=== PATIENT | female | born 1970 | race African-American/Black ===

== ENCOUNTER 2017-05-18 13:02 | Outpatient (CLI) | payer OTHER | END 2017-05-18 13:03 | disposition home or self-care (01) | LOC: BICRAD 13:02 | PROVIDERS: ATTEND Family Medicine | DX: M25.572 Pain in left ankle and joints of left foot (principal); M25.472 Effusion, left ankle; M19.072 Primary osteoarthritis, left ankle and foot; M77.9 Enthesopathy, unspecified ==

== ENCOUNTER 2017-06-06 17:35 | Emergency (ER) | payer OTHER ==
--- NOTE | 2017-06-06 18:43 | RAD ---
CHEST ONE VIEW: 06/06/17 HISTORY: 47-year-old female with chest pain and cough. History of flu. Heart size is within normal limits. The lungs are clear. No pneumonia, edema, pleural effusion or oth er acute process. POS: [facility]
== END 2017-06-06 18:48 | disposition home or self-care (01) ==
LOC: ERS 17:35
DX: J11.1 Influenza due to unidentified influenza virus with other respiratory manifestations (principal); I10 Essential (primary) hypertension; F41.9 Anxiety disorder, unspecified
CPT/HCPCS: 71010

== ENCOUNTER 2017-10-14 13:14 | Outpatient (CLI) | payer OTHER | END 2017-10-14 13:15 | disposition home or self-care (01) | LOC: BICRAD 13:14 | PROVIDERS: ATTEND Internal Medicine | DX: Z02.71 Encounter for disability determination (principal); M47.896 Other spondylosis, lumbar region | CPT/HCPCS: 72100 ==

== ENCOUNTER 2020-04-03 08:39 | Outpatient (CLI) | payer OTHER | END 2020-04-03 08:40 | disposition home or self-care (01) | LOC: DTY/OP 08:39 | PROVIDERS: ATTEND Surgery | DX: E66.01 Morbid (severe) obesity due to excess calories (principal) | CPT/HCPCS: 97802 ==

== ENCOUNTER 2020-10-05 08:15 | Outpatient (CLI) | payer OTHER | END 2020-10-05 08:16 | disposition home or self-care (01) | LOC: BICRAD 08:15 | PROVIDERS: ATTEND Family Medicine | DX: S80.01XA Contusion of right knee, initial encounter (principal); S80.02XA Contusion of left knee, initial encounter; S90.31XA Contusion of right foot, initial encounter; S90.32XA Contusion of left foot, initial encounter; G56.02 Carpal tunnel syndrome, left upper limb; M25.522 Pain in left elbow; M25.521 Pain in right elbow; M25.512 Pain in left shoulder; M25.511 Pain in right shoulder; M54.2 Cervicalgia; M17.0 Bilateral primary osteoarthritis of knee; M19.072 Primary osteoarthritis, left ankle and foot; M19.071 Primary osteoarthritis, right ankle and foot; M77.31 Calcaneal spur, right foot; M19.021 Primary osteoarthritis, right elbow; M19.022 Primary osteoarthritis, left elbow; M19.011 Primary osteoarthritis, right shoulder; M19.012 Primary osteoarthritis, left shoulder; M47.812 Spondylosis without myelopathy or radiculopathy, cervical region; M50.31 Other cervical disc degeneration, high cervical region; Z98.890 Other specified postprocedural states; Z87.81 Personal history of (healed) traumatic fracture | CPT/HCPCS: 72050 ==

== ENCOUNTER 2021-06-27 12:56 | Outpatient (CLI) | payer OTHER | END 2021-06-27 12:57 | disposition home or self-care (01) | LOC: ULT 12:56 | PROVIDERS: ATTEND Nurse Practitioner | DX: N92.1 Excessive and frequent menstruation with irregular cycle (principal) | CPT/HCPCS: 76856 ==

== ENCOUNTER 2021-08-12 11:12 | Outpatient (CLI) | payer OTHER | END 2021-08-12 11:13 | disposition home or self-care (01) | LOC: DTY/OP 11:12 | PROVIDERS: ATTEND Surgery | DX: E66.01 Morbid (severe) obesity due to excess calories (principal) | CPT/HCPCS: 97802 ==

== ENCOUNTER 2021-12-24 14:55 | Outpatient (CLI) | payer OTHER | END 2021-12-24 14:56 | disposition home or self-care (01) | LOC: LABBT 14:55 | PROVIDERS: ATTEND Internal Medicine | DX: Z20.822 Contact with and (suspected) exposure to COVID-19 (principal) | CPT/HCPCS: 87811 ==

== ENCOUNTER 2021-12-26 06:02 | Day surgery (SDC) | payer OTHER ==
[2021-12-25 09:17] VITALS: BMI 46.3
[2021-12-26] MEDS ORDERED: PROPOFOL 200 MG/20 ML VIAL ONE (08:04)
[2021-12-26] MEDS ORDERED: Lidocaine 1% PF 5 ML VIAL ONE (08:04)
== END 2021-12-26 09:20 | disposition home or self-care (01) ==
LOC: SDC 06:02
PROVIDERS: ATTEND Internal Medicine
PROC: 0DBL8ZZ Excision of Transverse Colon, Via Natural or Artificial Opening Endoscopic (ICD-10-PCS; principal; 2021-12-26)
PROC: 0DB58ZX Excision of Esophagus, Via Natural or Artificial Opening Endoscopic, Diagnostic (ICD-10-PCS; principal; 2021-12-26)
DX: Z12.11 Encounter for screening for malignant neoplasm of colon (principal); K63.5 Polyp of colon; K62.89 Other specified diseases of anus and rectum; K29.50 Unspecified chronic gastritis without bleeding; I10 Essential (primary) hypertension; E78.00 Pure hypercholesterolemia, unspecified; M19.90 Unspecified osteoarthritis, unspecified site; Z80.0 Family history of malignant neoplasm of digestive organs; Z83.71 Family history of colonic polyps; Z79.899 Other long term (current) drug therapy; Z86.19 Personal history of other infectious and parasitic diseases
CPT/HCPCS: 88305; 88342; J2704

== ENCOUNTER 2022-01-09 15:03 | Outpatient (CLI) | payer OTHER | END 2022-01-09 15:04 | disposition home or self-care (01) | LOC: BICRAD 15:03 | PROVIDERS: ATTEND Surgery | DX: Z01.818 Encounter for other preprocedural examination (principal) | CPT/HCPCS: 71046 ==

== ENCOUNTER 2022-03-07 09:08 | Outpatient (CLI) | payer OTHER | END 2022-03-07 09:09 | disposition home or self-care (01) | LOC: BICRAD 09:08 | PROVIDERS: ATTEND Family Medicine | DX: M25.512 Pain in left shoulder (principal) ==

== ENCOUNTER 2022-03-20 08:45 | Inpatient (IN) | payer OTHER ==
[2022-04-07 14:06] VITALS: BMI 45.8
[2022-04-09] MEDS ORDERED: Bupivacaine/Epinephrine 0.25% 30 ML VIAL ONE (13:01)
[2022-04-09] MEDS ORDERED: Heparin 5,000 UNITS/ML VIAL ONE (13:05)
[2022-04-09 13:30] LABS: SARS-CoV-2 NAA Rapid Test Not Detected (NotDetected)
[2022-04-09] MEDS ORDERED: fentaNYL Citrate/PF 100 MCG/2 ML SYRINGE ONE (13:37)
[2022-04-09] MEDS ORDERED: Sodium Chloride 0.9% 100 ML ONE (13:49)
[2022-04-09] MEDS ORDERED: CEFAZOLIN 2 GM VIAL ONE (13:49)
[2022-04-09] MEDS ORDERED: NEOSTIGMINE 3 MG/3 ML SYR 3 MG/3 ML SYRINGE ONE (14:07)
[2022-04-09] MEDS ORDERED: Dexamethasone 20 MG/5 ML VIAL ONE (14:07)
[2022-04-09] MEDS ORDERED: Rocuronium Bromide 10 MG/ML (10ML VIAL) ONE (14:07)
[2022-04-09] MEDS ORDERED: ePHEDrine 50 MG/ML VIAL ONE (14:07)
[2022-04-09] MEDS ORDERED: PROPOFOL 200 MG/20 ML VIAL ONE (14:07)
[2022-04-09] MEDS ORDERED: Glycopyrrolate 0.2 MG/ML 5 ML SYRINGE ONE (14:07)
[2022-04-09] MEDS ORDERED: Ondansetron PF 4 MG/2 ML Vial ONE (14:07)
[2022-04-09] MEDS ORDERED: SUGAMMADEX SODIUM 200 MG/2 ML VIAL ONE (14:58)
[2022-04-09] MEDS ORDERED: Promethazine HCl 25 MG/ML VIAL IVPB PRN ×2 (15:12→15:56)
[2022-04-09] MEDS ORDERED: Ondansetron HCl/PF 4 MG/2 ML Vial IVP PRN ×2 (15:12→15:56)
[2022-04-09] MEDS ORDERED: Promethazine HCl 25 MG/ML VIAL IM PRN ×4 (15:12→15:56)
[2022-04-09] MEDS ORDERED: FENTANYL 50 MCG/ML VIAL 50 MCG/ML VIAL ONE ×3 (15:15→16:03)
[2022-04-09] MEDS ORDERED: Ondansetron PF 4 MG/2 ML Vial IVP PRN (15:18)
[2022-04-09] MEDS ORDERED: Dextrose 5% in Water 1,000 ML IV PRN (15:18)
[2022-04-09] MEDS: D5 1/2 NS w/20 mEq KCL 1,000 ML IV SCH (15:18)
[2022-04-09] MEDS ORDERED: Dextrose 50% Abboject 50 ML SYRINGE SLOW IVP PRN (15:18)
[2022-04-09] MEDS ORDERED: diphenhydrAMINE 50 MG/ML VIAL IVP PRN ×2 (15:18→15:56)
[2022-04-09] MEDS ORDERED: hydrALAZINE 20 MG/ML VIAL SLOW IVP PRN ×2 (15:18→15:57)
[2022-04-09] MEDS ORDERED: FENTANYL 500 MCG/10 ML VIAL 2,000 MCG in Sodium Chloride 0.9% 60 ML IV PRN (15:56)
[2022-04-09] MEDS ORDERED: Naloxone HCl 0.4 mg/ml Vial IV PRN (15:56)
[2022-04-09] MEDS ORDERED: diphenhydrAMINE 50 MG/ML VIAL IM PRN (15:56)
[2022-04-09] MEDS ORDERED: Zolpidem Tartrate 5 MG TAB PO PRN (15:56)
[2022-04-09] MEDS ORDERED: diphenhydrAMINE 25 MG CAP PO PRN (15:56)
[2022-04-09] MEDS ORDERED: Communication Order-Pharmacy FS SCH (16:00)
[2022-04-09] MEDS ORDERED: hydrALAZINE 20 MG/ML VIAL ONE (16:03)
[2022-04-09] MEDS ORDERED: Promethazine HCl 25 MG/ML VIAL ONE (18:01)
[2022-04-09] MEDS: Ondansetron PF 4 MG/2 ML Vial IVP PRN (19:31)
[2022-04-10] MEDS: D5 1/2 NS w/20 mEq KCL 1,000 ML IV SCH ×4 (00:22→21:19)
[2022-04-10] MEDS: Ondansetron PF 4 MG/2 ML Vial IVP PRN (05:40)
[2022-04-10 06:11] LABS: #Lymphocytes 1.2 thou/uL (1.20-3.40); #Monocytes 0.3 thou/uL (0.11-0.59); #Neutrophils 9.3 thou/uL (1.40-6.50); %Basophils 0.1 % (0.0-1.0); %Eosinophils 0.2 % (0.0-10.0); %Lymphocytes 11.3 % (21.0-51.0); %Monocytes 2.7 % (0.0-10.0); %Neutrophils 85.7 % (42.0-75.0); Hemoglobin 12.9 g/dL (12.0-16.0); Mean Corpuscular HGB CONC 31.4 g/dL (32.0-36.0); Mean Corpuscular Hemoglobin 28.8 pg (27.0-31.0); Mean Corpuscular Volume 91.7 fl (78.0-98.0); Mean Platelet Volume 7.7 fL (7.4-10.4); Platelet Count 344 thou/uL (130-400); RBC Distribution Width 13.7 % (11.5-14.5); Red Blood Cell (RBC) Count 4.47 mill/uL (4.20-5.40); White Blood Cell (WBC) Count 10.8 thou/uL (4.8-10.8)
[2022-04-10 06:32] LABS: Anion Gap 17 mmol/L (10-20); BUN (Urea Nitrogen) 8 mg/dL (7.0-18.7); Calc. Creatinine Clearance 135 mL/min (70-130); Calcium 9.5 mg/dL (7.8-10.44); Carbon Dioxide 21 mmol/L (22-29); Chloride 104 mmol/L (98-107); Estimated GFR 73; Glucose 159 mg/dL (70-105); Potassium 3.8 mmol/L (3.5-5.1); Sodium 138 mmol/L (136-145)
[2022-04-10] MEDS: Amlodipine 10 MG TAB PO SCH (09:21)
[2022-04-10] MEDS: Enoxaparin Sodium 40 MG/0.4 ML SYRINGE SC SCH (09:22)
[2022-04-10] MEDS: Pantoprazole 40 MG VIAL IVP SCH (09:22)
[2022-04-10] MEDS: Hydrocodone-Acetamin 15 ML UDCUP PO PRN ×2 (17:09→21:23)
[2022-04-11 00:29] VITALS: TEMP 98.2
[2022-04-11] MEDS: D5 1/2 NS w/20 mEq KCL 1,000 ML IV SCH (05:19)
[2022-04-11] MEDS: Hydrocodone-Acetamin 15 ML UDCUP PO PRN (05:23)
[2022-04-11 08:24] VITALS: BP 156/87
[2022-04-11] MEDS: Enoxaparin Sodium 40 MG/0.4 ML SYRINGE SC SCH (09:37)
[2022-04-11] MEDS: Amlodipine 10 MG TAB PO SCH (09:37)
[2022-04-11] MEDS: Pantoprazole 40 MG VIAL IVP SCH (09:37)
== END 2022-04-11 10:15 | disposition home or self-care (01) | DRG 621 ==
LOC: SURG A 04-09 12:04 → SURG B 04-09 18:38
PROVIDERS: ADMIT Surgery; ATTEND Surgery
PROC: 0DB64Z3 Excision of Stomach, Percutaneous Endoscopic Approach, Vertical (ICD-10-PCS; principal; 2022-04-09)
PROC: 8E0W4CZ Robotic Assisted Procedure of Trunk Region, Percutaneous Endoscopic Approach (ICD-10-PCS; 2022-04-09)
DX: E66.01 Morbid (severe) obesity due to excess calories (principal); Z68.42 Body mass index [BMI] 45.0-49.9, adult; E78.5 Hyperlipidemia, unspecified; I10 Essential (primary) hypertension; Z20.822 Contact with and (suspected) exposure to COVID-19; F41.9 Anxiety disorder, unspecified; M19.90 Unspecified osteoarthritis, unspecified site
CPT/HCPCS: 36415; 80048; 85025; 88307; 88342; 94760; C9113; J0360; J1100; J1644; J2405; J2550; J2704; J3010; J3480; J3490; U0002

== ENCOUNTER 2022-04-03 09:15 | Outpatient (CLI) | payer OTHER ==
[2022-04-03 10:59] LABS: #Eosinphils 0.1 10x3/uL (0.0-0.5); #Monocytes 0.4 10x3/uL (0.0-1.1); #Neutrophils 2.1 10x3/uL (1.5-8.4); %Basophils 0.8 % (0.0-2.0); %Eosinophils 2.7 % (0.0-6.0); %Monocytes 9.1 % (0.0-10.0); %Neutrophils 45.2 % (40.0-75.0); Hemoglobin 12.1 g/dL (12.0-15.5); Mean Corpuscular HGB CONC 32.6 g/dL (32.0-36.0); Mean Corpuscular Hemoglobin 27.9 pg (27.0-33.0); Mean Corpuscular Volume 85.7 fl (81.6-98.3); Platelet Count 466 10x3/uL (150-450); RBC Distribution Width 14.5 % (11.5-14.5); Red Blood Cell (RBC) Count 4.33 10x6/uL (3.90-5.03); White Blood Cell (WBC) Count 4.7 10x3/uL (3.5-10.5)
[2022-04-03 11:29] LABS: ALT (SGPT) 52 U/L (8-55); AST (SGOT) 49 U/L (5-34); Albumin 4.4 g/dL (3.5-5.0); Alkaline Phosphatase 67 U/L (40-110); Anion Gap 13 mmol/L (10-20); Bilirubin, Total 0.4 mg/dL (0.2-1.2); Calc. Creatinine Clearance 0 mL/min (70-130); Calcium 9.8 mg/dL (7.8-10.44); Carbon Dioxide 27 mmol/L (22-29); Chloride 104 mmol/L (98-107); Estimated GFR 88; Globulin 3.5 g/dL (2.4-3.5); Glucose 105 mg/dL (70-105); Potassium 3.7 mmol/L (3.5-5.1); Protein, Total 7.9 g/dL (6.0-8.3); Sodium 140 mmol/L (136-145)
[2022-04-03 12:07] LABS: BUN (Urea Nitrogen) 12 mg/dL (7.0-18.7)
== END 2022-04-03 09:16 | disposition home or self-care (01) ==
LOC: LABBT 09:15
PROVIDERS: ATTEND Surgery
DX: Z01.818 Encounter for other preprocedural examination (principal); E66.01 Morbid (severe) obesity due to excess calories
CPT/HCPCS: 71046; 80053; 83036; 85025; 93005; 93010

== ENCOUNTER 2022-09-24 12:09 | Outpatient (CLI) | payer OTHER | END 2022-09-24 12:10 | disposition home or self-care (01) | LOC: BICMAMMO 12:09 | PROVIDERS: ATTEND Family Medicine | DX: Z12.31 Encounter for screening mammogram for malignant neoplasm of breast (principal) | CPT/HCPCS: 77067 ==

== ENCOUNTER 2025-02-17 15:07 | Emergency (ER) | payer OTHER ==
[2025-02-17] MEDS ORDERED: Mag-Al 1200 mg/1200 mg/30 ML UDCUP ONE (16:39)
[2025-02-17] MEDS ORDERED: Lidocaine Viscous Sol 2% 15 ml UD Cup ONE (16:39)
[2025-02-17] MEDS ORDERED: Famotidine 20 MG TAB ONE ×2 (16:39→16:43)
[2025-02-17 16:53] LABS: #Basophils Less than 0.03 10x3/uL (0.0-0.2); #Eosinophils 0.11 10x3/uL (0.0-0.7); #Monocytes 0.43 10x3/uL (0.11-0.59); #Neutrophils 4.20 10x3/uL (1.40-6.50); %Basophils 0.3 % (0.0-1.0); %Eosinophils 1.9 % (0.0-10.0); %Lymphocytes 19.6 % (21.0-51.0); %Monocytes 7.3 % (0.0-10.0); %Neutrophils 70.7 % (42.0-75.0); Hematocrit 38.9 % (36.0-47.0); Hemoglobin 12.5 g/dL (12.0-16.0); Mean Corpuscular Hemoglobin 29.4 pg (27.0-31.0); Mean Corpuscular Volume 91.5 fL (78.0-98.0); Platelet Count 300 10x3/uL (130-400); Red Blood Cell (RBC) Count 4.25 mill/uL (4.20-5.40); White Blood Cell (WBC) Count 5.93 10x3/uL (4.8-10.8)
[2025-02-17 17:06] LABS: BHCG - Serum Negative (NEGATIVE); Pregs Control Background? CLEAR/WHITE (CLR/WHITE); Pregs Control Bar Appear? YES (CONTROL BAR)
[2025-02-17 17:12] LABS: ALT (SGPT) 196 U/L (Less than 34); AST (SGOT) 324 U/L (11-34); Albumin 3.5 g/dL (3.1-4.5); Alkaline Phosphatase 85 U/L (40-110); Anion Gap 11 mmol/L (10-20); BUN (Urea Nitrogen) 7 mg/dL (9.8-20.1); Bilirubin, Total 1.4 mg/dL (0.3-1.2); Calc. Creatinine Clearance 0 mL/min (70-130); Calcium 8.5 mg/dL (7.8-10.44); Carbon Dioxide 24 mmol/L (22-29); Chloride 106 mmol/L (98-107); Globulin 2.6 g/dL (2.4-3.5); Glucose 165 mg/dL (70-105); Lipase 83 U/L (8-78); Potassium 3.1 mmol/L (3.5-5.1); Sodium 138 mmol/L (136-145)
[2025-02-17 17:49] LABS: Bacteria/HPF 4+ HPF (None Seen); CAUTI Indications for Culture Pelvic or flank pain; Glucose, Urine (Dipstick) Normal (Negative); Leukocyte Negative Leu/uL (Negative); Protein, Urine (Dipstick) Negative (Neg-Trace); RBC/HPF 0-3 HPF (0-3); Specific Gravity, Urine 1.008 (1.002-1.036)
[2025-02-17 17:51] LABS: Urine Culture Reflex No No
== END 2025-02-17 18:58 | disposition home or self-care (01) ==
LOC: ERS 15:07
DX: K80.20 Calculus of gallbladder without cholecystitis without obstruction (principal); R74.01 Elevation of levels of liver transaminase levels; I10 Essential (primary) hypertension; Z79.899 Other long term (current) drug therapy
CPT/HCPCS: 74176; 76705; 80053; 81001; 83690; 84484; 84703; 85025; 93005

== ENCOUNTER 2025-04-15 17:37 | Emergency (ER) | payer OTHER ==
[2025-04-15] MEDS ORDERED: Ketorolac Tromethamine 30 MG (1 mL) VIAL ONE (18:53)
== END 2025-04-15 18:57 | disposition home or self-care (01) ==
LOC: ERS 17:37
DX: M25.561 Pain in right knee (principal); M25.511 Pain in right shoulder; I10 Essential (primary) hypertension; Z79.899 Other long term (current) drug therapy
CPT/HCPCS: 96372; 99282; J1885